=== PATIENT | female | born 1995 | race Two or more races ===

== ENCOUNTER 2016-10-08 09:47 | Emergency (ER) | payer MEDICAID ==
--- NOTE | 2016-10-08 10:07 | CPEKG ---
Heart Rate: 114 RR Interval: 526 P-R Interval: 124 QRSD Interval: 86 QT Interval: 328 QTC Interval: 452 P Fruita: 77 QRS Fruita: 62 T Wave Fruita: 46 EKG Severity - ABNORMAL ECG - EKG Impression: SINUS TACHYCARDIA EKG Impression: MULTIPLE VENTRICULAR PREMATURE COMPLEXES Electronically Signed By: Betty Inman 08-Oct-2016 15:41:26
--- NOTE | 2016-10-08 10:10 | EDPHY ---
H & P Stated Complaint: chest tightness, PVCs, tachycardia HPI/ROS: CHIEF COMPLAINT: Chest pain, shortness of breath. HISTORY OF PRESENT ILLNESS: The patient is a 21-year-old female with a history of anxiety who presents via EMS with chest pain and shortness of breath that began this morning while at work. She was doing paperwork when she suddenly developed trouble breathing. EMS noticed EKG changes en route. Her symptoms have been intermittent since onset. She did not faint, but has fainted in the past (not for at least 2 years). She denies the use of illicit stimulants or excessive caffeine. She reports associated diarrhea over the past few days ( more than 4 episodes per day) and RUQ pain. She denies seeing bloody stool. She reports having an anxiety attack last year for which she visited [facility]. She had an EKG at that time but is not aware of any abnormalities. Today's symptoms are similar to her last anxiety attack but worse. She has a family history of diabetes but no family history of sudden . Her brother had a congenital heart problem that required surgery. REVIEW OF SYSTEMS: A ten point review of systems was performed and is negative with the exception of the items mentioned in the HPI. Source: Patient Exam Limitations: No limitations - Personal History LMP (Females 10-55): 15-21 Days Ago Current Tetanus/Diphtheria Vaccine: Unsure Current Tetanus Diphtheria and Acellular Pertussis (TDAP): Unsure - Medical/Surgical History Hx Asthma: No Hx Chronic Respiratory Disease: No Hx Diabetes: No Hx Cardiac Disease: No Hx Renal Disease: No Hx Cirrhosis: No Hx Alcoholism: No Hx HIV/AIDS: No Hx Splenectomy or Spleen Trauma: No Other PMH: denies - Social History Smoking Status: Never smoked Additional Social History: 1. 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 - Physical Exam Exam: General Appearance: Alert. Vital signs reviewed. Heart rate 118. * Eyes: Pupils equal and round, no conjunctival injection, no discharge. Anicteric. ENT, Mouth: Mucous membranes are moist, no oropharyngeal erythema or edema. Neck: No lymphadenopathy, supple. No thyromegaly. Respiratory: Lungs are clear to auscultation; no wheezes, rales, or rhonchi. Cardiovascular: Tachycardic with occasional ectopy. Regular rhythm; no murmur, rub, or gallop. Gastrointestinal: Abdomen is soft, no masses or organomegaly, bowel sounds normal. RUQ tenderness. Skin: Warm and dry, no rashes on exposed skin, normal color. Back: Nontender to palpation over the thoracolumbar spine. No CVAT. Extremities: No lower extremity edema, no calf tenderness or swelling. Neurological: Alert and oriented. Moving all four extremities easily and equally. Psychiatric: Normal affect. Constitutional: Initial Vital Signs Temperature (C) 37.4 C 10/08/16 09:56 Heart Rate 118 H 10/08/16 09:56 Respiratory Rate 16 10/08/16 09:56 Blood Pressure 143/83 H 10/08/16 09:56 O2 Sat (%) 99 10/08/16 09:56 O2 Delivery Mode Room Air Allergies/Adverse Reactions: No Known Allergies Allergy (Unverified 10/08/16 09:56) Home Medications: Medication Instructions Recorded Metoprolol Tartrate [Lopressor 25 12.5 mg PO BID #60 tab 10/08/16 mg (*)] Medical Decision Making - Diagnostics EKG Interpretation: The 12 lead EKG was interpreted by myself. See hard copy and/or "tracemaster" electronic copy for interpretation. Sinus tachycardia rate 114, multiple monomorphic PVCs. ED Course/Re-evaluation: An IV was established and labs ordered. Chest x-ray, EKG ordered. EKG shows sinus tachycardia with monomorphic PVCs. QT is normal. Laboratory studies show a potassium of 3.3, slightly low. Her blood sugar is 105. Troponin is normal, I do not suspect an acute coronary syndrome. D-dimer is normal, making PE unlikely as she has no risk factors. TSH is within normal limits making thyroid abnormality unlikely. 1035: Consulted with Dr. Boyce, cardiology. She recommends echocardiogram. She reviewed the echocardiogram and verbally reported to me as within normal limits. She is recommended metoprolol 5 mg IV, which the patient received. Dr. Boyce met with an examined the patient in the emergency department. Please see her consultation. She is recommending p.o. metoprolol twice daily and follow up with her in the office for Holter monitor. 1053: Reassessed patient. She is feeling better. During her stay in the emergency department her chest pain and shortness of breath were entirely resolved. Blood pressure 106/57 at discharge. Differential Diagnosis: Considered a differential diagnosis that includes but is not limited to atrial flutter, atrial fibrillation, pre excitation syndrome, electrolyte abnormality, thyroid or other endocrine abnormality, structural heart disease, and use of illicit substances or excessive caffeine. - Data Points Laboratory Results: Laboratory Results 10/08/16 09:45 10/08/16 09:45 Medications Given: Discontinued Medications Metoprolol Tartrate (Lopressor Injection) 5 mg IVP EDNOW ONE Stop: 10/08/16 10:38 Last Admin: 10/08/16 10:50 Dose: 5 mg Ondansetron HCl (Zofran) 4 mg IVP EDNOW ONE Stop: 10/08/16 10:46 Last Admin: 10/08/16 10:45 Dose: 4 mg Potassium Chloride (Potassium Chloride Oral Liquid) 20 meq PO ONCE ONE Stop: 10/08/16 12:11 Last Admin: 10/08/16 12:35 Dose: 20 meq Departure - Departure Disposition: Home, Routine, Self-Care Clinical Impression: PVC (premature ventricular contraction) Condition: Good Instructions: Premature Ventricular Contractions (ED) Additional Instructions: Take Metoprolol as prescribed. Call Dr. Boyce, cardiology, today to set up a follow up appointment. Return to the emergency department for any serious worsening of condition. Referrals: [facility] [Outside] - As per Instructions Darlyn Boyce MD [Medical Doctor] - As per Instructions Prescriptions: Metoprolol Tartrate [Lopressor 25 mg (*)] 12.5 mg PO BID #60 tab Report Scribed for: Betty Inman Report Scribed by: Alcides Grossman Date of Report: 10/08/16 Time of Report: 10:19 Physician Review and Approval Statement: 10/08/16 10:09 Portions of this note were transcribed by the medical supply technician. I, Dr. Betty Inman, personally performed the history, physical exam, and medical decision- making; and confirmed the accuracy of the information in the transcribed note.
[2016-10-08 10:15] LABS: % IMMATURE GRANULYOCYTES 0.3 % (0.0-1.1); ABSOLUTE IMMATURE GRANULOCYTES 0.02 10^3/uL (0.00-0.10); ADD DIFF? NO; ADD MORPH? NO; ADD SCAN? NO; ATYPICAL LYMPHOCYTE FLAG 10 (0-99); FRAGMENT RBC FLAG 0 (0-99); HEMATOCRIT 46.4 % (38.0-47.0); HEMOGLOBIN 16.1 g/dL (12.6-16.3); LEFT SHIFT FLG 0 (0-99); LIPEMIA HEMOLYSIS FLAG 90 (0-99); MEAN CELL HEMOGLOBIN 30.4 pg (27.9-34.1); MEAN CELL HEMOGLOBIN CONCENTR. 34.7 g/dL (32.4-36.7); MEAN CELL VOLUME 87.5 fL (81.5-99.8); MEAN PLATELET VOLUME 10.3 fL (8.7-11.7); PLATELET CLUMPS FLAG 0 (0-99); PLATELET COUNT 207 10^3/uL (150-400)
[2016-10-08 10:22] LABS: ANION GAP 16 mEq/L (8-16); CALCIUM 9.8 mg/dL (8.5-10.4); CARBON DIOXIDE 20 mEq/l (22-31); CHLORIDE 105 mEq/L (97-110); CREATININE 0.7 mg/dL (0.6-1.0); GLOMERULAR FILTRATION RATE > 60; GLUCOSE 105 mg/dL (70-100); POTASSIUM 3.3 mEq/L (3.5-5.2); SODIUM 141 mEq/L (134-144)
[2016-10-08 10:34] LABS: TROPONIN I < 0.012 ng/mL (0-0.034)
[2016-10-08] MEDS ORDERED: METOPROLOL TARTRATE 5 MG/5 ML INJ IVP ONE (10:37)
[2016-10-08] MEDS ORDERED: ONDANSETRON 4 MG/2 ML VIAL IVP ONE (10:45)
[2016-10-08] MEDS ORDERED: POTASSIUM CL 20 MEQ/15 ML UDCUP PO ONE (12:10)
[2016-10-08] MEDS ORDERED: POTASSIUM CL 20 MEQ PKT ONE (12:33)
[2016-10-08 12:50] VITALS: BP 106/57; PULSE 79; RESP 17; TEMP 98.2; O2SAT 95
--- NOTE | 2016-10-08 13:57 | ECHO ---
[id number] + + [address] : : [place] [address] : : [phone] + + Adult Echocardiographic Report + -----+ :Name: Shelli RICHARDSON Date: 10/08/2016 11:26 AM : : Hospital Admission Number: [id number] Bud n: ER: :: 1995 Gender: Female Height: 63 in : :Age: 21 yrs Race: [facility] Weight: 130 lb : :Reason For Study: Tachycardia/PVC/chest pain : : BSA: 1.6 meters 2 : + -----+ MMode/2D Measurements \T\ Calculations IVSd: 0.57 cm LVIDd: 4.4 cm FS: 43.7 % Ao root diam: LVPWd: 0.63 cm LVIDs: 2.5 cm EDV(Teich): 2.8 cm 86.3 ml LA dimension: ESV(Teich): 2.9 cm 21.4 ml EF(Teich): 75.2 % LVLd ap4: 8.6 cm SV(MOD-sp4): EDV(MOD-sp4): 55.0 ml 75.0 ml LVLs ap4: 6.8 cm ESV(MOD-sp4): 20.0 ml EF(MOD-sp4): 73.3 % Normal Measurement Values: + + :LVIDd (3.5-5.7cm) IVSd (0.6-1.1cm) LVPWd (0.6-1.1cm) Aortic Root (2.0-3.7cm)Left Atrium (1.5-4.0cm): :LV Vol(d) (76-115ml) LV Vol(s) (29-48ml) Ejec Fraction (50-65%)PV Matthew (0.6- 1.2m/s) TV Matthew (0.4-1.0m/s) : :MV E Matthew (0.8-1.0m/s)MV A Matthew (0.3-1.0m/s)LVOT Matthew (0.7-1.2m/s) Asc Ao Matthew ( 0.9-1.8m/s) : + + Doppler Measurements \T\ Calculations MV E max matthew: 95.8 cm/sec Ao V2 max: 141.0 cm/sec MV A max matthew: 53.3 cm/sec Ao max P.0 mmHg MV E/A: 1.8 Ao mean P.0 mmHg Ao V2 mean: 90.6 cm/sec Ao V2 VTI: 24.2 cm Left Ventricle The left ventricle is normal in size. There is normal left ventricular wall thickness. Left ventricular systolic function is normal. Ejection Fraction = 65-70%. No regional wall motion abnormalities noted. Right Ventricle The right ventricle is normal in size and function. Atria The left atrial size is normal. Right atrial size is normal. Mitral Valve The mitral valve is normal in structure and function. There is no evidence of mitral valve prolapse. There is no mitral valve stenosis. There is trace mitral regurgitation. Tricuspid Valve Normal tricuspid valve. There is trace tricuspid regurgitation. Aortic Valve The aortic valve opens well. There is no aortic stenosis. There is no aortic insufficiency. Pulmonic Valve The pulmonic valve is normal in structure and function. There is no pulmonic valvular regurgitation. Great Vessels The aortic root is normal size. Pericardium/Pleural There is no pericardial effusion. Conclusion A complete two-dimensional transthoracic echocardiogram was performed (2D, M-mode, Doppler and color flow Doppler). Left ventricular systolic function is normal. Ejection Fraction = 65-70%. There is trace mitral regurgitation. There is trace tricuspid regurgitation. Final Reading Physician: Dr Darlyn Boyce electronically signed on 10/08/2016 01:56 PM Ordering Physician: BALTAZAR MILTON Performed By: Kandy Parrish RDCS
--- NOTE | 2016-10-08 14:01 | GCON ---
[f rep st] CONSULTATION CARDIOLOGY CONSULTATION. DATE OF CONSULTATION: 10/08/2016 PRIMARY CARE: [facility]. CHIEF COMPLAINT: Palpitations and chest pain. HISTORY OF PRESENT ILLNESS: We were asked by Dr. Inman to visit with the patient. The patient is a pleasant 21-year-old female with a past diagnosis of panic attacks. She was brought to the ER by EMS with complaints of dyspnea and chest pain. She states that this came on suddenly at work. She did not have syncope. She did notice some palpitations. In the emergency department, she was found to have frequent monomorphic PVCs. She was given metopro lol 5 mg IV, which resolved all of her symptoms. As a younger person, she had episodes of syncope. She tells me this was initially associated with h ypokalemia and low blood sugar. Previously with syncope, she has not had chest pain or palpitations but has had shortness of breath. She has not had syncope for 2 years. REVIEW OF SYSTEMS: A full 10-point review of systems was performed and is otherwise negative except for intermittent headaches. PAST MEDICAL HISTORY: Anxiety. MEDICATIONS: Ibuprofen p.r.n. 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 She denies smoking. She denies cocaine or ot her stimulants. FAMILY HISTORY: Her brother had congenital heart disease that required surgery. There is no histor y of sudden cardiac . PHYSICAL EXAM: VITAL SIGNS: Blood pressure initially 143/83, now 104/62, heart rate 112, respirato ry rate is 18, oxygen saturation 97% on room air, temperature is 37.4. GENERAL: Well-appearing you ng female in no acute distress. HEENT: Sclerae are clear and free of jaundice. Mucous membranes a re moist. Normocephalic, atraumatic. CARDIOVASCULAR: JVP less than 10. Carotids equal and 2+ francisco aterally without bruit. HEART: Regular rate and rhythm without murmur, rub, or gallop. LUNGS: Cl ear to auscultation without wheezes, rhonchi, or rales. ABDOMEN: Soft, nontender, and nondistended without bruits, masses, or hepatosplenomegaly. EXTREMITIES: Warm and well perfused without cyanos is, clubbing, or edema. NEURO: Alert and oriented x3 without gross focal neurologic deficits. LABORATORY TESTS: White count 6.5, hematocrit 46.4, and platelets 207. D-dimer is negative. Sodiu m 141, potassium 3.3, chloride 105, bicarb 20, BUN 11, creatinine 0.7. TSH is pending. Beta HCG is negative. Troponin is negative. Glucose 105, calcium 9.8. EKG reviewed by me shows sinus tachycardia with monomorphic PVCs that appear to be outflow tract in origin. Normal QT interval. No evidence of preexcitation. Chest x-ray reviewed by me: Normal. Echocardiogram reviewed by me: No significant abnormality. ASSESSMENT AND PLAN: A 21-year-old female with symptomatic monomorphic premature ventricular contra ctions, possibly outflow tract in origin. She has responded well to IV metoprolol. We will start l ow-dose oral metoprolol. Beta-ariella side effects were reviewed with her. I would like her to follow up with me as an outpatient to have a 24-hour Holter monitor, follow up o n her TSH, see how she is doing on the beta ariella. Could consider cardiac MRI if she has recurren t symptoms, although I doubt ARVD. /[id number]/MODL
== END 2016-10-08 12:49 | disposition home or self-care (01) ==
DX: I49.3 Ventricular premature depolarization (principal)
CPT/HCPCS: 96374; J2405